=== PATIENT | female | born 1930 | race Caucasian/White ===

== ENCOUNTER 2016-11-04 14:22 | Observation (INO) | payer MEDICARE, OTHER ==
[~2016-11-04] VITALS: Ht 188 cm; Wt 63.5 kg
[2016-11-04] MEDS ORDERED: SODIUM CHLORIDE 0.9% 1,000 ML ONE (15:49)
[2016-11-04 17:32] VITALS: BMI 18.0
[2016-11-04 17:35] VITALS: BP_SYST 99; RESP 16; TEMP 97.5
[2016-11-04 18:27] VITALS: BMI 18.0
[2016-11-04 18:28] VITALS: BP_SYST 99; RESP 18; TEMP 97.5
[2016-11-04] MEDS ORDERED: MORPHINE 2 MG/ML SYR IV PRN (18:50)
[2016-11-04] MEDS ORDERED: LORAZEPAM 0.5 MG TAB PO PRN (18:50)
[2016-11-04] MEDS ORDERED: ASPIRIN 81 MG CHEW TAB PO ONE (18:50)
[2016-11-04] MEDS ORDERED: ONDANSETRON 4 MG VIAL IV PRN (18:50)
[2016-11-04] MEDS ORDERED: TEMAZEPAM 7.5 MG CAP PO PRN (18:50)
[2016-11-04] MEDS ORDERED: TRAMADOL 50 MG TAB PO PRN (18:50)
[2016-11-04] MEDS ORDERED: ACETAMINOPHEN 325 MG TAB PO PRN (18:50)
[2016-11-04] MEDS ORDERED: DOCUSATE SOD 100 MG CAP PO PRN (18:50)
[2016-11-04] MEDS ORDERED: NITROGLYCERIN SL 0.4 MG TAB SL PRN (18:50)
[2016-11-04 19:59] VITALS: BP_SYST 114; RESP 16; TEMP 97.1
[2016-11-04] MEDS: Carvedilol 3.125 MG TAB PO SCH (20:40)
[2016-11-04] MEDS: ISOSORBIDE MONO 30 MG TAB PO SCH (20:40)
[2016-11-04 23:31] VITALS: BP_SYST 126; RESP 16; TEMP 97.8
[2016-11-05 03:12] VITALS: BP_SYST 112; RESP 16; TEMP 96.3
[2016-11-05 07:27] VITALS: BP_SYST 104; TEMP 97.5
[2016-11-05] MEDS ORDERED: ASPIRIN EC 81 MG TAB PO SCH (08:00)
[2016-11-05] MEDS: ISOSORBIDE MONO 30 MG TAB PO SCH (08:35)
[2016-11-05] MEDS: Carvedilol 3.125 MG TAB PO SCH (08:35)
[2016-11-05] MEDS ORDERED: LISINOPRIL 10 MG TAB PO SCH (08:40)
[2016-11-05] MEDS ORDERED: Meclizine HCl 12.5 MG TAB PO PRN (08:40)
[2016-11-05] MEDS ORDERED: FEBUXOSTAT 40 MG TAB PO SCH (09:00)
[2016-11-05] MEDS ORDERED: COLCHICINE 0.6 MG TAB PO SCH (09:00)
[2016-11-05] MEDS ORDERED: BUMETANIDE 1 MG TAB PO SCH (09:00)
[2016-11-05] MEDS ORDERED: ISOSORBIDE MONO 30 MG TAB PO SCH (09:00)
[2016-11-05] MEDS ORDERED: Rivaroxaban 15 MG TAB PO SCH (09:00)
[2016-11-05] MEDS ORDERED: FERROUS GLUC 324 MG TAB PO SCH (09:00)
[2016-11-05] MEDS ORDERED: SPIRONOLACTONE 25 MG TAB PO SCH (09:00)
[2016-11-05] MEDS ORDERED: Carvedilol 3.125 MG TAB PO SCH (09:00)
[2016-11-05 09:05] VITALS: Ht 188 cm; Wt 63.5 kg
[2016-11-05] MEDS: SUCRALFATE 1 GM TAB PO SCH ×3 (11:00→15:15)
[2016-11-05 11:53] VITALS: BP_SYST 120; TEMP 98.1
[2016-11-05] MEDS ORDERED: SODIUM CHLORIDE 5% EYE EACH SCH (12:00)
[2016-11-05] MEDS: ARTIF TEARS OP SOLN 0.4ML EYE EACH SCH ×2 (12:33→15:14)
[2016-11-05 15:10] VITALS: BP_SYST 110; RESP 18; TEMP 97.5
[2016-11-05 17:47] VITALS: BP_SYST 110; RESP 18; TEMP 97.5
== END 2016-11-05 17:32 | disposition home or self-care (01) ==
LOC: ER 14:22 → EMR 16:22 → ENPENDDIS 16:22 → 4THW 17:30
PROVIDERS: ADMIT Internal Medicine Cardiovascular Disease; ATTEND Internal Medicine Cardiovascular Disease
CPT/HCPCS: 36415 ×2; 71010 ×2; 80053 ×2; 80061 ×2; 82550 ×2; 82553 ×2; 83735 ×2; 84484 ×2; 85025 ×2; 85610 ×2; 85730 ×2; 93005 ×2; 96360 ×2; 97799; 99285; G0378